=== PATIENT | female | born 1945 | race Caucasian/White ===

== ENCOUNTER 2021-11-25 09:31 | Outpatient (CLI) | payer MEDICARE | END 2021-11-25 09:32 | disposition home or self-care (01) | LOC: CSHMAMMO 09:31 | PROVIDERS: ATTEND Family Medicine | DX: M81.0 Age-related osteoporosis without current pathological fracture (principal); M85.88 Other specified disorders of bone density and structure, other site; M85.851 Other specified disorders of bone density and structure, right thigh | CPT/HCPCS: 77080 ==

== ENCOUNTER 2023-04-12 09:43 | Outpatient (CLI) | payer MEDICARE | END 2023-04-12 09:44 | disposition home or self-care (01) | LOC: CSHRAD 09:43 | PROVIDERS: ATTEND Family Medicine Sports Medicine | DX: R07.81 Pleurodynia (principal) ==